=== PATIENT | female | born 1935 | race Caucasian/White ===

== ENCOUNTER → 2021-07-15 12:55 | Outpatient (CLI) | payer MEDICARE, SELFPAY ==
--- NOTE | 2021-07-15 13:11 | XR_ITS ---
PROCEDURE: XR CERVICAL SPINE W FLEX/EXT CLINICAL INDICATION: neck pain COMPARISON: No exams were available for comparison FINDINGS: There is normal alignment. No acute fracture or dislocation is evident. There is degenerative disc disease at C3-C4 C4-C5 C5-C6 and C6-C7 with 3 mm anterolisthesis C5 on C6. No foraminal narrowing. Mild facet hypertrophic changes are present from C3-C6 Flexion and extension views are obtained showing no abnormal subluxation in flexion or extension. There is mild kyphosis of the thoracic spine and cervical spine at the C5-C6 junction. Other findings:None. IMPRESSION: Degenerative disc disease from C3-C7 with 3 mm anterolisthesis of C5 on C6. No abnormal subluxation in flexion or extension. Mild kyphosis at the C5-C6 junction. Dictated by: Dangelo Clarke MD 07/15/2021 15:42 Dangelo Clarke MD in [facility] 07/15/2021 15:42
[2021-07-15 17:10] LABS: Folate > 20.00 ng/mL
[2021-07-15 17:11] LABS: Vitamin B12 > 1000 pg/mL (239-931)
== END ==
PROVIDERS: Visit Provider Nurse Practitioner Family
DX: G20 Parkinson's disease (principal); M54.2 Cervicalgia; R29.2 Abnormal reflex; W19.XXXA Unspecified fall, initial encounter
CPT/HCPCS: 36415; 72052; 82607; 82746; 84443

== ENCOUNTER → 2021-08-03 08:15 | Outpatient (CLI) | payer MEDICARE, SELFPAY ==
--- NOTE | 2021-08-03 08:16 | MR_ITS ---
PROCEDURE INFORMATION: Exam: MR Cervical Spine Without Contrast Exam date and time: 08/03/2021 8:16 AM Age: 86 years old Clinical indication: Neck pain; Additional info: Eval for cervical stenosis with myelopathy. Neck pain worse on lt side. Unable to turn head. Prior x-ray 07-15-21 TECHNIQUE: Imaging protocol: Multiplanar magnetic resonance images of the cervical spine without contrast. COMPARISON: CR XR CERVICAL SPINE W FLEX/EXT 07/15/2021 1:29 PM FINDINGS: Vertebrae: Normal alignment of the cervical spine. There is diffuse disc space narrowing and endplate degeneration. Spinal cord: No abnormal signal is seen in the cervical spinal cord. C2-C3: No significant spinal canal stenosis or neural foraminal narrowing. C3-C4: No significant spinal canal stenosis or neural foraminal narrowing. C4-C5: No significant spinal canal stenosis or neural foraminal narrowing. C5-C6: There is a mildly bulging annulus and endplate degeneration together narrowing the ventral spinal canal without spinal canal stenosis- AP dimension of 1.2 cm however the spinal cord is displaced anteriorly in the canal at this level and there may be mild deformity of its ventral aspect series 2, image 8, series 5, image 16. The neural foramina are patent. C6-C7: No significant spinal canal stenosis or neural foraminal narrowing. C7-T1: No significant spinal canal stenosis or neural foraminal narrowing. Other bones/joints: No acute fracture or dislocation. Soft tissues: Unremarkable. Vertebral arteries: Expected flow voids in the vertebral arteries. Other findings: There is no significant spinal canal stenosis. IMPRESSION: No definite evidence of neural compromise in the cervical spine. There is no significant spinal canal stenosis or neural foraminal narrowing. The spinal cord is in the ventral aspect of the canal from C3-C4 through C6-C7 levels and the bulging annulus and endplate degeneration at C5-C6 may cause minimal deformity of its ventral aspect particularly if patient's head is in flexed position.
== END ==
PROVIDERS: PCP Nurse Practitioner Family; Visit Provider Nurse Practitioner Family
DX: M54.2 Cervicalgia (principal); R29.2 Abnormal reflex; W19.XXXS Unspecified fall, sequela
CPT/HCPCS: 72141; 76376